=== PATIENT | female | born 1980 | race American Indian/Alaskan Native ===

== ENCOUNTER 2018-03-12 14:49 | Inpatient (IN) | payer OTHER ==
[2018-03-12] MEDS ORDERED: PROVENTIL IH ONE ×2 (15:06→15:10)
[2018-03-12] MEDS ORDERED: ATROVENT IH ONE ×2 (15:06→15:10)
[2018-03-12] MEDS ORDERED: MAGNESIUM SULFATE 2GM/50ML 2 GM/50 ML BAG IV ONE (15:11)
[2018-03-12 15:43] LABS: Basophils # (Auto) 0.1 K/mm3 (0.0-0.1); Basophils % (Auto) 0.9 % (0.0-1.8); Eosinophils # (Auto) 0.4 K/mm3 (0.0-0.4); Eosinophils % (Auto) 6.3 % (0.0-4.3); Hematocrit 40.6 % (30.3-42.9); Hemoglobin 13.5 gm/dl (10.1-14.3); Lymphocytes # (Auto) 1.6 K/mm3 (1.2-5.4); Lymphocytes % (Auto) 27.3 % (13.4-35.0); Mean Corpuscular HGB Conc 33 % (30-34); Mean Corpuscular Hemoglobin 28 pg (28-32); Mean Corpuscular Volume 83 fl (79-97); Monocytes # (Auto) 0.5 K/mm3 (0.0-0.8); Monocytes % (Auto) 9.1 % (0.0-7.3); Red Blood Count 4.91 M/mm3 (3.65-5.03); Red Cell Distribution Width 13.5 % (13.2-15.2)
[2018-03-12] MEDS ORDERED: TYLENOL ONE (15:53)
[2018-03-12] MEDS ORDERED: TYLENOL PO ONE (15:53)
[2018-03-12 16:19] LABS: Blood Urea Nitrogen TNR mg/dL (7-17)
[2018-03-12 16:20] LABS: BUN/Creatinine Ratio TNR; Calcium TNR mg/dL (8.4-10.2); Hemolysis Index TNR
--- NOTE | 2018-03-12 17:02 | XRay Report ---
FINAL REPORT EXAM: XR CHEST 1V AP HISTORY: chest pain COMPARISON: None. TECHNIQUE: Two frontal views of the chest. FINDINGS: The cardiomediastinal silhouette is normal in appearance. The lungs are clear without focal consolidation. There is no pleural effusion or pneumothorax. There is no acute soft tissue or osseous abnormality. IMPRESSION: No acute cardiopulmonary disease.
[2018-03-12 17:05] LABS: Platelet Count 314 K/mm3 (140-440)
[2018-03-12 17:21] LABS: BUN/Creatinine Ratio 11; Blood Urea Nitrogen 8 mg/dL (7-17); Hemolysis Index 5
[2018-03-12] MEDS ORDERED: BABY ASPIRIN PO ONE (17:36)
--- NOTE | 2018-03-12 17:36 | Emergency Department Report ---
HPI - General Chief Complaint: Adult Asthma Time Seen by Provider: 03/12/18 15:03 - HPI HPI: The patient is a 37-year-old female with a history of asthma, presents for evaluation of dyspnea. The patient reports constant and severe dyspnea for the past one day, exacerbated with exertion and improved with breathing treatments. She also reports a mild nonproductive cough. She shares that she has been intubated in the past secondary to her asthma. The patient denies fever, trauma to the chest, chest pain, syncope, hemoptysis, unilateral leg swelling, oral contraceptive use, recent immobilization, history of DVT or PE, hx of recent cancer. ED Past Medical Hx - Past Medical History Hx Kidney Stones: Yes Hx Psychiatric Treatment: Yes ( depression) Hx Asthma: Yes Hx COPD: Yes Additional medical history: COPD; Ovarian and Breast Cancer - Surgical History Hx Cholecystectomy: Yes Hx Breast Surgery: Yes - Social History Smoking Status: Unknown if ever smoked Substance Use Type: None - Medications Home Medications: Home Medications Medication Instructions Recorded Confirmed Last Taken Type Duloxetine HCl [DULoxetine] 60 mg PO DAILY 02/13/17 12/27/17 Unknown History Escitalopram [Lexapro] 20 mg PO DAILY 02/13/17 12/27/17 1 Day Ago History ~02/12/17 carBAMazepine [TEGretol] 200 mg PO QHS 02/13/17 12/27/17 Unknown History risperiDONE [RisperDAL] 1 mg PO QHS 02/13/17 12/27/17 02/12/17 History Fluticasone/Salmeterol [Advair 200 mg IH BID #1 blst.w.dev 02/16/17 12/27/17 Unknown Rx 250-50 Diskus] ALBUTEROL Inhaler [Proair] 2 puff IH QID PRN 30 Days 12/30/17 Unknown Rx inhalation ALBUTEROL NEB's [Proventil 0.083% 2.5 mg IH Q4HRT PRN #30 nebu 12/30/17 Unknown Rx NEBS] Famotidine [Pepcid] 20 mg PO BID #60 tablet 12/30/17 Unknown Rx Fluticasone/Salmeterol [Advair 1 puff IH BID 30 Days blst.w.dev 12/30/17 Unknown Rx Diskus 500-50 mcg] Montelukast [Singulair] 10 mg PO QPM #30 tablet 12/30/17 Unknown Rx predniSONE [Deltasone] 50 mg PO QDAY #5 tab 12/30/17 Unknown Rx ED Review of Systems ROS: Stated complaint: ASTHMA Other details as noted in HPI Constitutional: denies: fever ENT: denies: throat or neck pain Respiratory: reports cough, shortness of breath Cardiovascular: denies: chest pain Endocrine: denies unexplained weight loss or gain Gastrointestinal: denies: abdominal pain, nausea Genitourinary: denies: dysuria Musculoskeletal: denies: leg swelling Skin: denies: rash Neurological: denies: headache Hematological/Lymphatic: denies: easy bleeding or easy bruising Psych: denies sadness or hopelessness Physical Exam - Physical Exam Vital Signs: Vital Signs 03/12/18 03/12/18 03/12/18 14:51 15:08 15:15 Temperature 97 F L Pulse Rate 116 H 91 H Respiratory 24 24 16 Rate Blood Pressure 157/101 Blood Pressure 139/96 [Right] O2 Sat by Pulse 95 100 100 Oximetry 03/12/18 03/12/18 15:55 16:50 Temperature Pulse Rate 97 H 95 H Respiratory 14 13 Rate Blood Pressure Blood Pressure 121/80 [Right] O2 Sat by Pulse 98 97 Oximetry Physical Exam: General: well-nourished, well-developed, no acute distress Head: Normocephalic, atraumatic Eyes: normal sclera ENT: Mucous membranes are pink and moist Neck: trachea midline, neck supple, No neck stiffness, no cervical adenopathy Respiratory: Diminished breath sounds and wheezing present throughout lung chaudhary bilaterally, costal retractions present, patient in mild respiratory distress Cardio: S1 and S2 present, no murmurs, rubs, gallops, capillary refill is brisk Abdomen: Normoactive bowel sounds, soft abdomen, no rigidity, no guarding or rebound tenderness Chest WALL/Back: No tenderness to palpation of the chest wall, no CVA tenderness with percussion Musc: No pitting edema Skin: No rash Neuro: no facial drooping, normal speech Psych: Normal affect ED Course Vital Signs 03/12/18 03/12/18 03/12/18 14:51 15:08 15:15 Temperature 97 F L Pulse Rate 116 H 91 H Respiratory 24 24 16 Rate Blood Pressure 157/101 Blood Pressure 139/96 [Right] O2 Sat by Pulse 95 100 100 Oximetry 03/12/18 03/12/18 15:55 16:50 Temperature Pulse Rate 97 H 95 H Respiratory 14 13 Rate Blood Pressure Blood Pressure 121/80 [Right] O2 Sat by Pulse 98 97 Oximetry ED Medical Decision Making - Lab Data Result diagrams: 03/12/18 15:15 03/12/18 16:51 - Medical Decision Making The patient was seen and examined by myself. The patient is placed on a cardiac surgeon and continuous pulse ox. On initial evaluation, the patient was found to be in no distress. Evaluation orders were placed. The patient is given a breathing treatment and steroids for txt of COPD. Chest x-ray negative for focal consolidation, pleural effusions, pulmonary congestion, pneumothorax, or other acute cardio pulmonary disease process. Lab results are grossly not concerning. The patient was reevaluated and reported that her dyspnea persisted. On reexamination the patient remains with significant wheezing and diminished breath sounds despite multiple breathing treatments. The on-call hospitalist service was contacted. They agreed to admit the patient for further treatment and close monitoring. The ED admit order was placed. The patient was admitted in guarded condition. Critical care attestation.: If time is entered above; I have spent that time in minutes in the direct care of this critically ill patient, excluding procedure time. ED Disposition Clinical Impression: Asthma with status asthmaticus in adult Qualifiers: Asthma severity: severe Asthma persistence: persistent Qualified Code(s): J45.52 - Severe persistent asthma with status asthmaticus Disposition: OP ADMIT IP TO THIS HOSP Is pt being admited?: Yes Does the pt Need Aspirin: Yes Condition: Serious Referrals: PRIMARY CARE, [Primary Care Provider] - 3-5 Days Time of Disposition: 17:35
[2018-03-12] MEDS ORDERED: BENADRYL IV ONE (17:37)
--- NOTE | 2018-03-12 17:40 | History and Physical Report ---
History of Present Illness Chief complaint: I cant breathe History of present illness: 37 YO Female with Asthma, COPD,Depression, Breast Cancer, Cervical Cancer, Depression presents to ED for evaluation. Pt states that she has experienced shortness of breath over the past 1 week with worsening symptoms over the past 1 day. Pt was seen at Urgent Care and given medications without improvement. Pt acknowledges nonproductive cough, dypsnea with exertion, decreased exercise tolerance. Pt denies fever, chills, trauma to the chest, chest pain, palpitations, syncope, hemoptysis, unilateral leg swelling, oral contraceptive use, prolonged travel/immobilization, individual/family history of DVT or PE,, recent ill contacts, unintentional weight loss, or night sweats. Pt seen and evaluated in ED and found to have Status asthmaticus complicated by respiratory failure. Pt admitted to telemetry. Past History Past Medical History: cancer, other (Asthma, Cancer, Depression) Past Surgical History: cholecystectomy, , Other (breast surgery) Social history: . denies: smoking, alcohol abuse, prescription drug abuse Family history: hypertension Medications and Allergies Allergies Allergy/AdvReac Type Severity Reaction Status Date / Time latex Allergy Unknown Verified 02/26/16 19:30 levofloxacin [From Levaquin] Allergy Shortness Verified 02/22/16 11:50 of Breath ondansetron Allergy Anaphylaxis Verified 02/26/16 19:30 Sulfa (Sulfonamide Allergy Shortness Verified 02/22/16 11:50 Antibiotics) of Breath Home Medications Medication Instructions Recorded Confirmed Last Taken Type Duloxetine HCl [DULoxetine] 60 mg PO DAILY 02/13/17 12/27/17 Unknown History Escitalopram [Lexapro] 20 mg PO DAILY 02/13/17 12/27/17 1 Day Ago History ~02/12/17 carBAMazepine [TEGretol] 200 mg PO QHS 02/13/17 12/27/17 Unknown History risperiDONE [RisperDAL] 1 mg PO QHS 02/13/17 12/27/17 02/12/17 History Fluticasone/Salmeterol [Advair 200 mg IH BID #1 blst.w.dev 02/16/17 12/27/17 Unknown Rx 250-50 Diskus] ALBUTEROL Inhaler [Proair] 2 puff IH QID PRN 30 Days 12/30/17 Unknown Rx inhalation ALBUTEROL NEB's [Proventil 0.083% 2.5 mg IH Q4HRT PRN #30 nebu 12/30/17 Unknown Rx NEBS] Famotidine [Pepcid] 20 mg PO BID #60 tablet 12/30/17 Unknown Rx Fluticasone/Salmeterol [Advair 1 puff IH BID 30 Days blst.w.dev 12/30/17 Unknown Rx Diskus 500-50 mcg] Montelukast [Singulair] 10 mg PO QPM #30 tablet 12/30/17 Unknown Rx predniSONE [Deltasone] 50 mg PO QDAY #5 tab 12/30/17 Unknown Rx Review of Systems Constitutional: no weight loss, no weight gain, no fever, no chills Ears, nose, mouth and throat: no ear pain, no ear discharge, no tinnitis, no decreased hearing, no nose pain, no nasal congestion, no nasal discharge Breasts: no change in shape, no swelling, no mass Cardiovascular: no chest pain, no orthopnea, no rapid/irregular heart beat, no edema Respiratory: cough, shortness of breath, dyspnea on exertion, wheezing, no pain , no pain on inspiration, no home oxygen Gastrointestinal: no nausea, no vomiting, no diarrhea, no constipation Genitourinary Female: no pelvic pain, no flank pain, no menorrhagia, no dysuria , no urinary frequency, no urgency, no stress incontinence, no post void dribbling Rectal: no pain, no incontinence, no bleeding Musculoskeletal: no neck stiffness, no neck pain, no shooting arm pain, no arm numbness/tingling, no low back pain, no leg numbness/tingling Integumentary: no rash, no pruritis, no redness, no sores, no wounds, no jaundice Neurological: no head injury, no transient paralysis, no paralysis, no weakness , no parathesias, no numbness, no tingling, no seizures, no syncope Psychiatric: no anxiety, no memory loss, no change in sleep habits, no sleep disturbances, no insomnia, no hypersomnia, no change in appetite, no change in libido Endocrine: no cold intolerance, no heat intolerance, no polyphagia, no excessive thirst, no polydipsia, no polyuria, no nocturia, no excessive sweating Hematologic/Lymphatic: no easy bruising, no easy bleeding, no lymphadenopathy Allergic/Immunologic: no urticaria, no allergic rhinitis, no wheezing, no persistent infections, no anaphylaxis, no angioedema Exam - Constitutional Vitals: Temp Pulse Resp BP Pulse Ox 97 F L 95 H 13 121/80 97 03/12/18 14:51 03/12/18 16:50 03/12/18 16:50 03/12/18 16:50 03/12/18 16:50 General appearance: Present: mild distress - EENT Eyes: Present: PERRL ENT: hearing intact, clear oral mucosa - Neck Neck: Present: supple, normal ROM - Respiratory Respiratory effort: labored Respiratory: bilateral: diminished, wheezing - Cardiovascular Heart Sounds: Present: S1 & S2. Absent: rub, click - Extremities Extremities: pulses symmetrical, No edema Peripheral Pulses: within normal limits - Abdominal General gastrointestinal: Present: soft, non-tender, non-distended, normal bowel sounds Female genitourinary: Present: normal - Integumentary Integumentary: Present: clear, warm, dry - Musculoskeletal Musculoskeletal: gait normal, strength equal bilaterally - Psychiatric Psychiatric: appropriate mood/affect, intact judgment & insight - Neurologic Neurologic: CNII-XII intact, moves all extremities Results - Labs CBC & Chem 7: 03/12/18 15:15 03/12/18 16:51 Labs: Abnormal lab results 03/12/18 03/12/18 Range/Units 15:15 16:51 [place] % (Auto) 9.1 H (0.0-7.3) % Eos % (Auto) 6.3 H (0.0-4.3) % Potassium 3.2 L (3.6-5.0) mmol/L Carbon Dioxide 19 L (22-30) mmol/L Glucose 109 H (65-100) mg/dL Assessment and Plan - Patient Problems (1) Respiratory failure Current Visit: Yes Status: Acute Qualifiers: Chronicity: acute Respiratory failure complication: hypoxia Qualified Code(s): J96.01 - Acute respiratory failure with hypoxia Plan to address problem: Supplemental oxygen, nebulizer therapy, IV steroids, NIPPV as clinically indicated, ABG, Chest X ray, pulse oximetry (2) Asthma with status asthmaticus in adult Current Visit: Yes Status: Acute Qualifiers: Asthma severity: severe Asthma persistence: persistent Qualified Code(s) : J45.52 - Severe persistent asthma with status asthmaticus Plan to address problem: IV steroids, IV antibiotics, supplemental oxygen, nebulizer therapy, NIPPV as clinically indicated ABG, magnesium sulfate (3) COPD exacerbation Current Visit: Yes Status: Acute Plan to address problem: supplemental oxygen, IV steroid therapy, Chest X ray, nebulizer therapy, NIPPV as clinically indicated, IV antibiotics. (4) DVT prophylaxis Current Visit: No Status: Acute Plan to address problem: SCD to BLE while in bed,
[2018-03-12] MEDS ORDERED: MORPHINE IV ONE (17:59)
[2018-03-12] MEDS ORDERED: TYLENOL PO PRN (18:04)
[2018-03-12] MEDS ORDERED: ZOFRAN IV PRN (18:04)
[2018-03-12] MEDS ORDERED: SODIUM CHLORIDE FLUSH SYRINGE 10 ML IV PRN ×2 (18:04→18:08)
[2018-03-12] MEDS ORDERED: MORPHINE ONE (18:05)
[2018-03-12] MEDS ORDERED: PROVENTIL IH PRN (18:06)
[2018-03-12] MEDS ORDERED: D50W (25GM) Syringe IV PRN (18:09)
[2018-03-12] MEDS ORDERED: DILAUDID IM PRN (19:09)
--- NOTE | 2018-03-12 19:58 | Cat Scan Report ---
FINAL REPORT PROCEDURE: CT ANGIO CHEST TECHNIQUE: Computerized axial tomographic angiography of the chest and pulmonary arteries was performed after the IV injection of iodinated nonionic contrast. The image data was postprocessed using maximum intensity projection (MIP) and 2-dimensional multiplanar reformatted (MPR) techniques. The examination is specifically tailored to the evaluation of the pulmonary arteries per clinical request. HISTORY: Short of breath 786.09, chest pain 786.50, dypsnea COMPARISON: No prior studies are available for comparison. FINDINGS: Heart and pericardium: Normal. Thoracic aorta: Normal. Pulmonary vasculature: Limited evaluation of distal branches due to suboptimal contrast enhancement. No emboli are seen within proximal to mid branches. Lymph nodes: No enlarged thoracic lymph nodes. Lungs: Normal. Pleural space: No effusion, thickening, or pneumothorax. Musculoskeletal structures: No significant abnormality. Upper abdominal structures: No significant abnormality. IMPRESSION: Limited evaluation of distal pulmonary arterial branches. Otherwise no emboli are seen.
[2018-03-12] MEDS: BROVANA NEBU IH SCH (21:02)
[2018-03-12] MEDS: PULMICORT IH SCH (21:03)
[2018-03-12] MEDS ORDERED: NON-FORMULARY (Fluticasone/Salmeterol [Advair Diskus 500-50 Mcg] 1 PUFF) IH SCH (22:00)
[2018-03-12] MEDS: PEPCID PO SCH (22:29)
[2018-03-12] MEDS: RisperDAL PO SCH (22:29)
[2018-03-12] MEDS: SODIUM CHLORIDE FLUSH SYRINGE 10 ML IV SCH (22:30)
[2018-03-12] MEDS: DILAUDID IV PRN (22:58)
[2018-03-13] MEDS: HumaLOG SUB-Q SCH ×5 (08:14→18:12)
[2018-03-13] MEDS: DILAUDID IV PRN (08:58)
[2018-03-13] MEDS: BROVANA NEBU IH SCH ×2 (10:00→19:55)
[2018-03-13] MEDS: PULMICORT IH SCH ×2 (10:00→19:55)
[2018-03-13] MEDS ORDERED: ZITHROMAX 500 MG in NACL 0.9% 250ML 250 ML IV SCH (10:00)
[2018-03-13] MEDS ORDERED: NON-FORMULARY (Duloxetine Hcl [Duloxetine] 60 MG) PO SCH (10:00)
[2018-03-13] MEDS: DUONEB *Not for PRN Use IH SCH ×3 (10:18→21:40)
[2018-03-13] MEDS: PEPCID PO SCH ×2 (10:51→21:48)
[2018-03-13] MEDS: LEXAPRO PO SCH (10:51)
[2018-03-13] MEDS: CYMBALTA PO SCH (10:51)
[2018-03-13] MEDS: SODIUM CHLORIDE FLUSH SYRINGE 10 ML IV SCH ×2 (10:53→21:49)
[2018-03-13] MEDS: HumuLIN R SUB-Q SCH ×4 (13:22→22:45)
--- NOTE | 2018-03-13 13:24 | Progress Note ---
Assessment and Plan Acute respiratory failure due to acute asthma exacerbation - We'll monitor patient to telemetry - Will provide scheduled nebulizer breathing treatment and as needed - Place on empiric steroid and antibiotic - will get sputum culture, chest x-ray was unremarkable - Provide supplemental oxygen to keep oxygen saturation above 92% - Consider to consult pulmonary if no improvement in next 24 hours - We'll place on sliding scale of insulin as patient will be on empiric steroid - We will resume home medications, monitor BP - Provide DVT prophylaxis with Lovenox. Acute asthma exacerbation -Continue nebs, steroids and antibiotics History of chronic pain - We'll continue Percocet as needed History of depression, continue Cymbalta DVT prophylaxis, Lovenox Brief history: 37-year-old -[place] female with history of asthma presented to the hospital with 1 week history of progressively worsening shortness of breath. Radiological test: Chest x-ray: No acute cardiopulmonary process CTA chest: No PE Hospitalist Physical exam: GENERAL: well-developed and well-nourished lying on bed appeared to be in no discomfort. HEENT: Normocephalic. Atraumatic. No conjunctival congestion or icterus. Patient has moist mucous membranes. NECK: Supple. Trachea midline. CHEST/LUNGS: Diffuse wheezing auscultated bilaterally, breathing nonlabored. No crackles or rhonchi. HEART/CARDIOVASCULAR: Regular in rate and rhythm. S1 and S2 positive. ABDOMEN: Abdomen is soft, nontender. Patient has normal bowel sounds. SKIN: There is no rash. Warm and dry. NEURO: No focal motor deficit. Follows command. MUSCULOSKELETAL: No joint effusion or tenderness. EXTRIMITY: No edema, no cyanosis or clubbing. PSYCH: Cooperative. Subjective Date of service: 03/13/18 Interval history: Patient seen and examined. Medical records and medication list reviewed. No acute event overnight noted by the RN. Patient c/o difficulty breathing with minimal exertion. Patient is tolerating diet. Discussed plan of care at bedside with patient. Objective - Constitutional Vitals: Vital Signs - 12hr 03/13/18 03/13/18 03/13/18 03:12 04:59 08:27 Temperature 97.9 F Pulse Rate 96 H 80 89 Pulse Rate [ Bilateral Throughout] Pulse Rate [ From Monitor] Respiratory 20 18 Rate Respiratory Rate [Bilateral Throughout] Blood Pressure 125/83 125/84 O2 Sat by Pulse 100 98 Oximetry 03/13/18 03/13/18 03/13/18 10:00 10:15 12:15 Temperature 98.8 F Pulse Rate 100 H Pulse Rate [ 98 H 101 H Bilateral Throughout] Pulse Rate [ 89 From Monitor] Respiratory 18 18 Rate Respiratory 20 20 Rate [Bilateral Throughout] Blood Pressure 115/79 O2 Sat by Pulse 98 98 Oximetry 03/13/18 12:23 Temperature 97.3 F L Pulse Rate 107 H Pulse Rate [ Bilateral Throughout] Pulse Rate [ From Monitor] Respiratory 18 Rate Respiratory Rate [Bilateral Throughout] Blood Pressure 118/72 O2 Sat by Pulse 94 Oximetry - Labs CBC & Chem 7: 03/12/18 15:15 03/12/18 16:51 Labs: Abnormal lab results 03/12/18 03/12/18 03/12/18 Range/Units 15:15 16:51 18:20 [place] % (Auto) 9.1 H (0.0-7.3) % Eos % (Auto) 6.3 H (0.0-4.3) % POC ABG pCO2 30.3 L (35-45) Potassium 3.2 L (3.6-5.0) mmol/L Carbon Dioxide 19 L (22-30) mmol/L Glucose 109 H (65-100) mg/dL POC Glucose (70-105) 03/12/18 03/13/18 03/13/18 Range/Units 21:53 06:39 12:21 [place] % (Auto) (0.0-7.3) % Eos % (Auto) (0.0-4.3) % POC ABG pCO2 (35-45) Potassium (3.6-5.0) mmol/L Carbon Dioxide (22-30) mmol/L Glucose (65-100) mg/dL POC Glucose 188 H 121 H 114 H (70-105)
[2018-03-13] MEDS: PERCOCET 5/325 PO PRN ×2 (14:28→18:46)
[2018-03-13] MEDS: KCL 10MEQ/100ML 10 MEQ/100 ML BAG IV SCH ×3 (14:56→18:45)
[2018-03-13] MEDS ORDERED: SINGULAIR PO SCH (18:00)
[2018-03-13] MEDS: RisperDAL PO SCH (21:48)
[2018-03-13] MEDS ORDERED: K-DUR PO ONE (22:02)
[2018-03-14] MEDS: DUONEB *Not for PRN Use IH SCH ×3 (02:08→13:45)
[2018-03-14 05:21] VITALS: BP 130/78
[2018-03-14 07:22] LABS: BUN/Creatinine Ratio 14; Blood Urea Nitrogen 10 mg/dL (7-17); Calcium 9.2 mg/dL (8.4-10.2); Hemolysis Index 3
[2018-03-14] MEDS: HumuLIN R SUB-Q SCH ×2 (08:18→13:52)
[2018-03-14] MEDS: BROVANA NEBU IH SCH (09:05)
[2018-03-14] MEDS: PULMICORT IH SCH (09:06)
[2018-03-14] MEDS: PERCOCET 5/325 PO PRN ×2 (09:27→14:15)
[2018-03-14] MEDS: CYMBALTA PO SCH (09:29)
[2018-03-14] MEDS: LEXAPRO PO SCH (09:29)
[2018-03-14] MEDS: SODIUM CHLORIDE FLUSH SYRINGE 10 ML IV SCH (09:29)
[2018-03-14] MEDS: PEPCID PO SCH (09:29)
[2018-03-14] MEDS ORDERED: ZITHROMAX PO SCH (10:00)
--- NOTE | 2018-03-14 11:15 | Discharge Summary ---
Providers - Providers Date of Admission: 03/12/18 18:04 Attending physician: TIMBO CHOUDHARY MD 03/12/18 Consult to Cardiac Rehabilitation [CONS] Routine Reason For Exam: Phase I Primary care physician: NURSING HOME ASSISTANT ADMINISTRATOR Hospitalization Reason for admission: Acute respiratory failure, Asthma exacerbation Condition: Serious Disposition: DC-01 TO HOME OR SELFCARE Time spent for discharge: 32 minutes - Discharge Diagnoses (1) Asthma with status asthmaticus in adult Status: Acute Qualifiers: Asthma severity: severe Asthma persistence: persistent Qualified Code(s) : J45.52 - Severe persistent asthma with status asthmaticus (2) COPD exacerbation Status: Acute (3) Respiratory failure Status: Acute Qualifiers: Chronicity: acute Respiratory failure complication: hypoxia Qualified Code(s): J96.01 - Acute respiratory failure with hypoxia (4) Hypokalemia Status: Acute Core Measure Documentation - Palliative Care Palliative Care/ Comfort Measures: Not Applicable - Core Measures Any of the following diagnoses?: none Exam - Constitutional Vitals: Temp Pulse Resp BP Pulse Ox 98.5 F 87 24 130/78 99 03/14/18 04:33 03/14/18 09:20 03/14/18 09:20 03/14/18 04:33 03/14/18 09:21 Plan Activity: no restrictions Weight Bearing Status: Full Weight Bearing Follow up with: PRIMARY CAREMD [Primary Care Provider] - 7 Days Prescriptions: Azithromycin [Zithromax TAB] 250 mg PO QDAY #5 tablet Prednisone [predniSONE 10 mg (6-Day Pack, 21 Tabs)] 10 mg PO .TAPER #1 tab.ds.pk
== END 2018-03-14 17:18 | disposition home or self-care (01) | DRG 189 ==
LOC: ED 14:49 → 4A 18:04
PROVIDERS: ADMIT Internal Medicine; ATTEND Internal Medicine
PROC: 4A033R1 Measurement of Arterial Saturation, Peripheral, Percutaneous Approach (ICD-10-PCS; principal; 2018-03-12)
DX: J96.00 Acute respiratory failure, unspecified whether with hypoxia or hypercapnia (principal); J44.1 Chronic obstructive pulmonary disease with (acute) exacerbation; J45.902 Unspecified asthma with status asthmaticus; F32.9 Major depressive disorder, single episode, unspecified; E87.6 Hypokalemia; Z87.442 Personal history of urinary calculi; Z85.43 Personal history of malignant neoplasm of ovary; Z85.3 Personal history of malignant neoplasm of breast; Z90.49 Acquired absence of other specified parts of digestive tract; Z79.899 Other long term (current) drug therapy; Z79.51 Long term (current) use of inhaled steroids; Z82.49 Family history of ischemic heart disease and other diseases of the circulatory system
CPT/HCPCS: 36415; 71045; 71275; 80048; 82803; 82962; 83880; 84484; 84703; 85025; 93005; 93010; 94640; J0456; J1170; J1815; J2270; J2920; J2930; J3475; J3480; J7050; Q9967

== ENCOUNTER 2018-07-15 17:54 | Emergency (ER) | payer OTHER ==
[2018-07-15 18:20] VITALS: BP 141/99
[2018-07-15] MEDS ORDERED: DUONEB *Not for PRN Use IH ONE (18:21)
== END 2018-07-15 20:35 | disposition left against medical advice (07) ==
LOC: ED 17:54
DX: R06.02 Shortness of breath (principal); J44.9 Chronic obstructive pulmonary disease, unspecified; F32.9 Major depressive disorder, single episode, unspecified; Z90.49 Acquired absence of other specified parts of digestive tract; Z87.442 Personal history of urinary calculi; Z87.891 Personal history of nicotine dependence; Z88.2 Allergy status to sulfonamides; Z91.040 Latex allergy status; Z88.6 Allergy status to analgesic agent; Z53.21 Procedure and treatment not carried out due to patient leaving prior to being seen by health care provider
CPT/HCPCS: 94640

== ENCOUNTER 2018-08-08 10:12 | Inpatient (IN) | payer OTHER ==
[2018-08-08] MEDS ORDERED: PROVENTIL IH ONE ×2 (10:57→11:30)
[2018-08-08] MEDS ORDERED: ATROVENT IH ONE ×2 (10:57→11:27)
[2018-08-08 11:21] LABS: Basophils # (Auto) 0.1 K/mm3 (0.0-0.1); Basophils % (Auto) 0.6 % (0.0-1.8); Eosinophils # (Auto) 0.3 K/mm3 (0.0-0.4); Eosinophils % (Auto) 3.3 % (0.0-4.3); Hematocrit 35.4 % (30.3-42.9); Hemoglobin 11.5 gm/dl (10.1-14.3); Lymphocytes # (Auto) 1.1 K/mm3 (1.2-5.4); Lymphocytes % (Auto) 11.7 % (13.4-35.0); Mean Corpuscular HGB Conc 33 % (30-34); Mean Corpuscular Hemoglobin 27 pg (28-32); Mean Corpuscular Volume 82 fl (79-97); Monocytes # (Auto) 0.5 K/mm3 (0.0-0.8); Monocytes % (Auto) 5.3 % (0.0-7.3); Platelet Count 295 K/mm3 (140-440); Red Blood Count 4.31 M/mm3 (3.65-5.03); Red Cell Distribution Width 14.8 % (13.2-15.2)
--- NOTE | 2018-08-08 11:21 | Emergency Department Report ---
ED General Adult HPI - General Chief complaint: Dyspnea/Respdistress Stated complaint: RAVI Time Seen by Provider: 08/08/18 10:45 Source: EMS Mode of arrival: Stretcher Limitations: No Limitations - History of Present Illness Initial comments: A 37-year-old female with a history of asthma presents with a complaint of shortness of breath. Patient states that over the past 2 days she has been taking her for inhalers as well as a nebulized treatment every 4 hours with minimal relief. Patient states her symptoms of shortness of breath worsened today. Patient states that she was seen at [facility] yesterday. Patient states she's had continued wheezing with a cough. EMS gave patient magnesium Solu-Medrol and albuterol 5 mg. Patient has had no fever. Patient states that she also has had noted blood in her stool for the past 3 days. She denies any melena. Patient also complains of intermittent chest pain for the past 3 days as well. - Related Data Home Medications Medication Instructions Recorded Confirmed Last Taken Duloxetine HCl [DULoxetine] 60 mg PO DAILY 02/13/17 08/08/18 2 Days Ago ~03/11/18 Escitalopram [Lexapro] 20 mg PO DAILY 02/13/17 08/08/18 2 Days Ago ~03/11/18 carBAMazepine [TEGretol] 200 mg PO QHS 02/13/17 08/08/18 2 Days Ago ~03/11/18 risperiDONE [RisperDAL] 1 mg PO QHS 02/13/17 08/08/18 2 Days Ago ~03/11/18 ALBUTEROL Inhaler (OR & NICU) 2 puff IH QID PRN 08/08/18 08/08/18 Unknown [Proair] Amoxicillin/Potassium Clav 1 each PO BID 08/08/18 08/08/18 Unknown [Augmentin 875-125 Tablet] Benzonatate 200 mg PO PRN 08/08/18 08/08/18 Unknown Previous Rx's Medication Instructions Recorded Last Taken Type ALBUTEROL NEB's [Proventil 0.083% 2.5 mg IH Q4HRT PRN #30 nebu 12/30/17 2 Days Ago Rx NEBS] ~03/11/18 Fluticasone/Salmeterol [Advair 1 puff IH BID 30 Days blst.w.dev 12/30/17 2 Days Ago Rx Diskus 500-50 mcg] ~03/11/18 Montelukast [Singulair] 10 mg PO QPM #30 tablet 12/30/17 2 Days Ago Rx ~03/11/18 Prednisone [predniSONE 10 mg 10 mg PO .TAPER #1 tab.ds.pk 03/14/18 Unknown Rx (6-Day Pack, 21 Tabs)] Allergies Allergy/AdvReac Type Severity Reaction Status Date / Time latex Allergy Unknown Verified 02/26/16 19:30 levofloxacin [From Levaquin] Allergy Shortness Verified 02/22/16 11:50 of Breath ondansetron Allergy Anaphylaxis Verified 02/26/16 19:30 Sulfa (Sulfonamide Allergy Shortness Verified 02/22/16 11:50 Antibiotics) of Breath ED Review of Systems ROS: Stated complaint: RAVI Other details as noted in HPI Constitutional: denies: chills, fever Eyes: denies: eye pain, eye discharge, vision change ENT: denies: ear pain, throat pain Respiratory: cough, SOB at rest, wheezing. denies: shortness of breath Cardiovascular: chest pain. denies: palpitations Endocrine: no symptoms reported Gastrointestinal: hematochezia. denies: abdominal pain, nausea, diarrhea Genitourinary: denies: urgency, dysuria, discharge Musculoskeletal: denies: back pain, joint swelling, arthralgia Skin: denies: rash, lesions Neurological: denies: headache, weakness, paresthesias Psychiatric: denies: anxiety, depression Hematological/Lymphatic: denies: easy bleeding, easy bruising ED Past Medical Hx - Past Medical History Hx Congestive Heart Failure: No Hx Diabetes: No Hx Kidney Stones: Yes Hx Psychiatric Treatment: Yes ( depression) Hx Asthma: Yes Hx COPD: Yes Additional medical history: COPD; Ovarian and Breast Cancer - Surgical History Hx Cholecystectomy: Yes Hx Breast Surgery: Yes - Social History Smoking Status: Former Smoker Substance Use Type: None - Medications Home Medications: Home Medications Medication Instructions Recorded Confirmed Last Taken Type Duloxetine HCl [DULoxetine] 60 mg PO DAILY 02/13/17 08/08/18 2 Days Ago History ~03/11/18 Escitalopram [Lexapro] 20 mg PO DAILY 02/13/17 08/08/18 2 Days Ago History ~03/11/18 carBAMazepine [TEGretol] 200 mg PO QHS 02/13/17 08/08/18 2 Days Ago History ~03/11/18 risperiDONE [RisperDAL] 1 mg PO QHS 02/13/17 08/08/18 2 Days Ago History ~03/11/18 ALBUTEROL NEB's [Proventil 0.083% 2.5 mg IH Q4HRT PRN #30 nebu 12/30/17 2 Days Ago Rx NEBS] ~03/11/18 Fluticasone/Salmeterol [Advair 1 puff IH BID 30 Days blst.w.dev 12/30/17 2 Days Ago Rx Diskus 500-50 mcg] ~03/11/18 Montelukast [Singulair] 10 mg PO QPM #30 tablet 12/30/17 08/08/18 2 Days Ago Rx ~03/11/18 Prednisone [predniSONE 10 mg 10 mg PO .TAPER #1 tab.ds.pk 03/14/18 08/08/18 Unknown Rx (6-Day Pack, 21 Tabs)] ALBUTEROL Inhaler (OR & NICU) 2 puff IH QID PRN 08/08/18 08/08/18 Unknown History [Proair] Amoxicillin/Potassium Clav 1 each PO BID 08/08/18 08/08/18 Unknown History [Augmentin 875-125 Tablet] Benzonatate 200 mg PO PRN 08/08/18 08/08/18 Unknown History ED Physical Exam - General Limitations: No Limitations General appearance: alert, in distress (respiratory) - Head Head exam: Present: atraumatic, normocephalic - Eye Eye exam: Present: normal appearance - ENT ENT exam: Present: mucous membranes dry - Neck Neck exam: Present: normal inspection - Respiratory Respiratory exam: Present: respiratory distress (moderate respiratory), wheezes (diffuse wheezing present), decreased breath sounds - Cardiovascular Cardiovascular Exam: Present: normal rhythm, tachycardia. Absent: systolic murmur, diastolic murmur, rubs, gallop - GI/Abdominal GI/Abdominal exam: Present: soft, normal bowel sounds - Rectal Rectal exam: Present: heme (-) stool, other (brown stool) - Extremities Exam Extremities exam: Present: normal inspection - Back Exam Back exam: Present: normal inspection - Neurological Exam Neurological exam: Present: alert, oriented X3 - Psychiatric Psychiatric exam: Present: normal affect, normal mood - Skin Skin exam: Present: warm, dry, intact, normal color. Absent: rash ED Course Vital Signs 08/08/18 08/08/18 08/08/18 10:49 11:00 11:16 Temperature 98.1 F Pulse Rate 102 H 108 H Respiratory 26 H Rate Blood Pressure 138/83 127/92 O2 Sat by Pulse 99 100 98 Oximetry 08/08/18 08/08/18 08/08/18 11:30 11:53 12:00 Temperature Pulse Rate 97 H 97 H 110 H Respiratory 17 16 Rate Blood Pressure 133/78 137/85 O2 Sat by Pulse 98 99 Oximetry 08/08/18 08/08/18 08/08/18 13:00 14:00 15:00 Temperature Pulse Rate 113 H 119 H Respiratory 26 H 22 22 Rate Blood Pressure 130/84 130/84 131/82 O2 Sat by Pulse 99 99 97 Oximetry ED Medical Decision Making - Lab Data Result diagrams: 08/08/18 11:12 08/08/18 11:12 - EKG Data EKG shows normal: sinus rhythm Rate: normal - EKG Data When compared to previous EKG there are: no significant change Interpretation: no acute changes - Medical Decision Making Patient received albuterol 10 mg and Atrovent 1 mg while here in the emergency department. He shouldn't ambulate and her O2 sat was 98% on room air. Patient still continued to complain of feeling weak and having diffuse wheezing. The case is discussed with the hospitalist service who agreed to admit the patient for continued management and treatment. - Differential Diagnosis Asthma Exacerbation; Pneumonia; Dehydration; Anemia; Critical Care Time: Yes Critical care time in (mins) excluding proc time.: 38 Critical care attestation.: If time is entered above; I have spent that time in minutes in the direct care of this critically ill patient, excluding procedure time. Critical Care time includes time spent on frequent reassessments, direct bedside care, and physician consultation. ED Disposition Clinical Impression: Asthma with acute exacerbation Disposition: OP ADMIT IP TO THIS HOSP Is pt being admited?: Yes Condition: Stable Referrals: PRIMARY CARE, [Primary Care Provider] - 3-5 Days Time of Disposition: 15:08
--- NOTE | 2018-08-08 11:29 | XRay Report ---
AP CHEST: HISTORY: Dyspnea AP view of the chest demonstrates a normal mediastinal and cardiac contour with clear lungs and normal bony and soft tissue structures. IMPRESSION: Unremarkable AP chest. No change since 03/12/18.
[2018-08-08 11:45] LABS: Alanine Aminotransferase 13 units/L (7-56); Albumin 3.9 g/dL (3.9-5); BUN/Creatinine Ratio 16; Blood Urea Nitrogen 13 mg/dL (7-17); Calcium 9.1 mg/dL (8.4-10.2); Hemolysis Index 9
[2018-08-08] MEDS ORDERED: SODIUM CHLORIDE FLUSH SYRINGE 10 ML IV PRN (13:27)
[2018-08-08] MEDS ORDERED: ZOFRAN IV PRN (13:27)
[2018-08-08] MEDS ORDERED: PROVENTIL IH PRN (13:27)
[2018-08-08] MEDS ORDERED: TYLENOL PO PRN (13:27)
[2018-08-08] MEDS ORDERED: MAGNESIUM SULFATE 1 GM in WATER FOR INJ (PF) 23 ML IV ONE (13:33)
--- NOTE | 2018-08-08 13:36 | History and Physical Report ---
History of Present Illness Chief complaint: I cant breathe History of present illness: 37 YO Female with Asthma, COPD, Depression, Breast Cancer, Cervical Cancer, Depression presents to ED for evaluation. Pt states that she has experienced shortness of breath over the past 2days with worsening symptoms over the past 1 day. Pt was seen at another hospital and given medications without improvement. Pt acknowledges increased nonproductive cough, dypsnea with exertion, decreased exercise tolerance, shortness of breath, and worsening symptoms with nebulizer therapy every four hours. Pt denies fever, chills, trauma to the chest, chest pain, palpitations, syncope, hemoptysis, unilateral leg swelling, oral contraceptive use, prolonged travel/immobilization, individual/family history of DVT or PE,, recent ill contacts, unintentional weight loss, or night sweats. Pt seen and evaluated in ED and found to have Status Asthmaticus complicated by Acute Respiratory Failure. Pt admitted to medical floor. Past History Past Medical History: cancer, COPD, other (Asthma) Past Surgical History: Social history: . denies: smoking, alcohol abuse, prescription drug abuse Family history: hypertension Medications and Allergies Allergies Allergy/AdvReac Type Severity Reaction Status Date / Time latex Allergy Unknown Verified 02/26/16 19:30 levofloxacin [From Levaquin] Allergy Shortness Verified 02/22/16 11:50 of Breath ondansetron Allergy Anaphylaxis Verified 02/26/16 19:30 Sulfa (Sulfonamide Allergy Shortness Verified 02/22/16 11:50 Antibiotics) of Breath Home Medications Medication Instructions Recorded Confirmed Last Taken Type Duloxetine HCl [DULoxetine] 60 mg PO DAILY 02/13/17 03/13/18 2 Days Ago History ~03/11/18 Escitalopram [Lexapro] 20 mg PO DAILY 02/13/17 03/13/18 2 Days Ago History ~03/11/18 carBAMazepine [TEGretol] 200 mg PO QHS 02/13/17 03/13/18 2 Days Ago History ~03/11/18 risperiDONE [RisperDAL] 1 mg PO QHS 02/13/17 03/13/18 2 Days Ago History ~03/11/18 ALBUTEROL Inhaler (OR & NICU) 2 puff IH QID PRN 30 Days 12/30/17 03/13/18 2 Days Ago Rx [ProAir HFA Inhaler] inhalation ~03/11/18 ALBUTEROL NEB's [Proventil 0.083% 2.5 mg IH Q4HRT PRN #30 nebu 12/30/17 2 Days Ago Rx NEBS] ~03/11/18 Famotidine [Pepcid] 20 mg PO BID #60 tablet 12/30/17 03/13/18 2 Days Ago Rx ~03/11/18 Fluticasone/Salmeterol [Advair 1 puff IH BID 30 Days blst.w.dev 12/30/17 2 Days Ago Rx Diskus 500-50 mcg] ~03/11/18 Montelukast [Singulair] 10 mg PO QPM #30 tablet 12/30/17 03/13/18 2 Days Ago Rx ~03/11/18 Azithromycin [Zithromax TAB] 250 mg PO QDAY #5 tablet 03/14/18 Unknown Rx Prednisone [predniSONE 10 mg 10 mg PO .TAPER #1 tab.ds.pk 03/14/18 Unknown Rx (6-Day Pack, 21 Tabs)] Active Meds: Active Medications Acetaminophen (Tylenol) 650 mg PO Q4H PRN PRN Reason: Pain MILD(1-3)/Fever >100.5/COLES Albuterol (Proventil) 2.5 mg IH Q4HRT PRN PRN Reason: Shortness Of Breath Budesonide (Pulmicort) 0.5 mg IH Q12HRT WENDY Famotidine (Pepcid) 20 mg PO BID WENDY Hydrocodone Bit/Homatropine Methylb (Hydromet) 10 ml PO Q12H PRN PRN Reason: Cough Lorazepam (Ativan) 1 mg IV ONCE ONE Stop: 08/08/18 13:31 Lorazepam (Ativan) 1 mg IV Q6H PRN PRN Reason: Agitation Ondansetron HCl (Zofran) 4 mg IV Q8H PRN PRN Reason: Nausea And Vomiting Sodium Chloride (Sodium Chloride Flush Syringe 10 Ml) 10 ml IV BID WENDY Sodium Chloride (Sodium Chloride Flush Syringe 10 Ml) 10 ml IV PRN PRN PRN Reason: LINE FLUSH Review of Systems Constitutional: no weight loss, no weight gain, no fever, no chills Ears, nose, mouth and throat: no ear pain, no ear discharge, no tinnitis, no decreased hearing, no nose pain, no nasal congestion Breasts: no change in shape, no swelling, no mass Cardiovascular: no chest pain, no orthopnea, no palpitations, no rapid/ irregular heart beat, no edema Respiratory: cough, cough with sputum, shortness of breath, wheezing Gastrointestinal: no nausea, no vomiting, no diarrhea, no constipation, no change in bowel habits Genitourinary Female: no pelvic pain, no flank pain, no menorrhagia, no dysuria , no urinary frequency, no urgency Rectal: no pain, no incontinence Musculoskeletal: no neck stiffness, no neck pain, no shooting arm pain, no arm numbness/tingling, no low back pain, no shooting leg pain, no leg numbness/ tingling Integumentary: no rash, no pruritis, no redness, no sores, no wounds Neurological: no transient paralysis, no paralysis, no weakness, no parathesias , no numbness, no tingling, no seizures Psychiatric: no anxiety, no memory loss, no change in sleep habits, no sleep disturbances, no insomnia, no hypersomnia, no change in appetite Endocrine: no cold intolerance, no heat intolerance, no polyphagia, no excessive thirst, no polydipsia, no polyuria Hematologic/Lymphatic: no easy bruising, no easy bleeding, no lymphadenopathy, no lymphedema Allergic/Immunologic: no urticaria, no allergic rhinitis, no wheezing, no persistent infections, no anaphylaxis, no angioedema Exam - Constitutional Vitals: Temp Pulse Resp BP Pulse Ox 98.1 F 97 H 17 133/78 98 08/08/18 10:49 08/08/18 11:53 08/08/18 11:30 08/08/18 11:30 08/08/18 11:30 General appearance: Present: mild distress - EENT Eyes: Present: PERRL ENT: hearing intact, clear oral mucosa - Neck Neck: Present: supple, normal ROM - Respiratory Respiratory effort: labored Respiratory: bilateral: diminished, wheezing - Cardiovascular Rhythm: other (tachycardia) Heart Sounds: Present: S1 & S2. Absent: rub, click - Extremities Extremities: pulses symmetrical, No edema Peripheral Pulses: within normal limits - Integumentary Integumentary: Present: clear, warm, dry - Musculoskeletal Musculoskeletal: gait normal, strength equal bilaterally - Psychiatric Psychiatric: appropriate mood/affect, intact judgment & insight - Neurologic Neurologic: CNII-XII intact, moves all extremities Results - Labs CBC & Chem 7: 08/08/18 11:12 08/08/18 11:12 Labs: Abnormal lab results 08/08/18 08/08/18 Range/Units 11:12 11:12 MCH 27 L (28-32) pg Lymph % (Auto) 11.7 L (13.4-35.0) % Lymph # 1.1 L (1.2-5.4) K/mm3 Seg Neutrophils % 79.1 H (40.0-70.0) % Carbon Dioxide 20 L (22-30) mmol/L Glucose 102 H (65-100) mg/dL Assessment and Plan - Patient Problems (1) Respiratory failure with hypoxia Current Visit: Yes Status: Acute Qualifiers: Chronicity: acute on chronic Qualified Code(s): J96.21 - Acute and chronic respiratory failure with hypoxia Plan to address problem: Supplemental oxygen, nebulizer therapy, supportive care, chest x ray, CTA chest , NIPPV as clinically indicated, (2) Anxiety Current Visit: Yes Status: Acute Plan to address problem: Ativan prn, supportive care. (3) Asthma with status asthmaticus in adult Current Visit: No Status: Acute Qualifiers: Asthma severity: severe Asthma persistence: persistent Qualified Code(s) : J45.52 - Severe persistent asthma with status asthmaticus Plan to address problem: IV steroid therapy, supplemental oxygen, chest x ray, NIPPV as clinically indicated, Magnesium sulfate given by EMS en route to hospital (4) DVT prophylaxis Current Visit: No Status: Acute Plan to address problem: SCD to BLE while in bed.
[2018-08-08] MEDS ORDERED: ATIVAN IV ONE (13:37)
--- NOTE | 2018-08-08 14:52 | Cat Scan Report ---
CTA CHEST: HISTORY: Dyspnea. COMPARISON: 03/12/18. TECHNIQUE: Helical CT in 1.25mm intervals following IV contrast. Pulmonary embolus protocol. Sagittal and coronal reformatted images. Rotational MIP images. FINDINGS: Contrast bolus is satisfactory. No pulmonary embolus is identified. Thyroid gland: Normal. Tracheobronchial tree: Normal. Esophagus: Normal. Heart: Normal. Pericardium: Normal. Mediastinum: Normal. Lung [place]: normal. Pleural Spaces: Normal. Musculoskeletal: Normal. IMPRESSION: No evidence for pulmonary embolus. Unremarkable CT chest with contrast.
[2018-08-08] MEDS: ATIVAN IV PRN (18:39)
[2018-08-08] MEDS: BROVANA NEBU IH SCH (19:37)
[2018-08-08] MEDS: PROVENTIL IH SCH ×2 (19:37→23:53)
[2018-08-08] MEDS: PULMICORT IH SCH (19:37)
[2018-08-08] MEDS ORDERED: PROVENTIL IH SCH (20:00)
[2018-08-08] MEDS ORDERED: PULMICORT IH SCH (20:00)
[2018-08-08] MEDS ORDERED: NON-FORMULARY (Fluticasone/Salmeterol [Advair Diskus 500-50 Mcg] 1 PUFF) IH SCH (22:00)
[2018-08-08] MEDS: RisperDAL PO SCH (22:14)
[2018-08-08] MEDS: SODIUM CHLORIDE FLUSH SYRINGE 10 ML IV SCH (22:14)
[2018-08-08] MEDS: PEPCID PO SCH (22:14)
[2018-08-09] MEDS: PROVENTIL IH SCH ×6 (03:14→23:34)
[2018-08-09] MEDS: ATIVAN IV PRN ×3 (06:16→22:38)
[2018-08-09] MEDS: PULMICORT IH SCH ×2 (08:15→19:59)
[2018-08-09] MEDS: BROVANA NEBU IH SCH ×2 (08:16→20:00)
[2018-08-09] MEDS: CYMBALTA PO SCH (09:34)
[2018-08-09] MEDS: LEXAPRO PO SCH (09:35)
[2018-08-09] MEDS: PEPCID PO SCH ×2 (09:35→22:38)
[2018-08-09] MEDS: SODIUM CHLORIDE FLUSH SYRINGE 10 ML IV SCH ×3 (09:35→23:28)
[2018-08-09] MEDS ORDERED: NON-FORMULARY (Duloxetine Hcl [Duloxetine] 60 MG) PO SCH (10:00)
[2018-08-09] MEDS: HYDROMET PO PRN ×2 (17:17→17:27)
[2018-08-09] MEDS: SINGULAIR PO SCH (17:17)
--- NOTE | 2018-08-09 18:14 | Progress Note ---
Assessment and Plan Assessment and Plan - Patient Problems (1) Respiratory failure with hypoxia Current Visit: Yes Status: Acute Continue Solu-Medrol nebulizer treatments and antibiotics (2) Anxiety Current Visit: Yes Status: Acute Plan to address problem: Ativan prn, supportive care. (3) Asthma with status asthmaticus in adult Current Visit: No Status: Acute Qualifiers: Asthma severity: severe Asthma persistence: persistent Qualified Code(s) : J45.52 - Severe persistent asthma with status asthmaticus Plan to address problem: IV steroid therapy, supplemental oxygen, chest x ray, NIPPV as clinically indicated, Magnesium sulfate given by EMS en route to hospital (4) DVT prophylaxis Current Visit: No Status: Acute Plan to address problem: SCD to BLE while in bed. Subjective Date of service: 08/09/18 Principal diagnosis: status asthmaticus with respiratory failure Interval history: Symptomatically better Objective - Constitutional Vitals: Vital Signs - 12hr 08/09/18 08/09/18 08/09/18 06:55 08:15 08:29 Temperature 98.6 F Pulse Rate 106 H Pulse Rate [ 114 H Anterior Bilateral Throughout] Pulse Rate [ Anterior Left Upper Lobe] Pulse Rate [ Posterior Throughout] Pulse Rate [ Right From Monitor] Respiratory 18 Rate Respiratory 20 Rate [Anterior Bilateral Throughout] Respiratory Rate [Anterior Left Upper Lobe ] Respiratory Rate [Posterior Throughout] Blood Pressure Blood Pressure 97/70 [Left] O2 Sat by Pulse 100 97 Oximetry 08/09/18 08/09/18 08/09/18 08:34 10:00 12:38 Temperature 98.6 F Pulse Rate Pulse Rate [ Anterior Bilateral Throughout] Pulse Rate [ 114 H Anterior Left Upper Lobe] Pulse Rate [ Posterior Throughout] Pulse Rate [ 114 H Right From Monitor] Respiratory 22 16 Rate Respiratory Rate [Anterior Bilateral Throughout] Respiratory 20 Rate [Anterior Left Upper Lobe ] Respiratory Rate [Posterior Throughout] Blood Pressure 120/70 Blood Pressure [Left] O2 Sat by Pulse Oximetry 08/09/18 08/09/18 08/09/18 13:10 13:22 16:38 Temperature 99.0 F Pulse Rate 102 H Pulse Rate [ 109 H 111 H Anterior Bilateral Throughout] Pulse Rate [ Anterior Left Upper Lobe] Pulse Rate [ 109 H 111 H Posterior Throughout] Pulse Rate [ Right From Monitor] Respiratory 16 Rate Respiratory 20 20 Rate [Anterior Bilateral Throughout] Respiratory Rate [Anterior Left Upper Lobe ] Respiratory 20 20 Rate [Posterior Throughout] Blood Pressure 121/74 Blood Pressure [Left] O2 Sat by Pulse 99 Oximetry 08/09/18 08/09/18 16:50 16:58 Temperature Pulse Rate Pulse Rate [ 108 H 110 H Anterior Bilateral Throughout] Pulse Rate [ Anterior Left Upper Lobe] Pulse Rate [ 108 H 110 H Posterior Throughout] Pulse Rate [ Right From Monitor] Respiratory Rate Respiratory 18 18 Rate [Anterior Bilateral Throughout] Respiratory Rate [Anterior Left Upper Lobe ] Respiratory 18 18 Rate [Posterior Throughout] Blood Pressure Blood Pressure [Left] O2 Sat by Pulse Oximetry General appearance: Present: mild distress, well-nourished - EENT Eyes: PERRL, EOM intact ENT: hearing intact, clear oral mucosa Ears: bilateral: normal - Neck Neck: supple, normal ROM - Respiratory Respiratory effort: normal Respiratory: bilateral: CTA - Breasts Breasts: normal - Cardiovascular Heart rate: 76 Rhythm: regular Heart Sounds: Present: S1 & S2. Absent: gallop, rub Extremities: pulses intact, No edema, normal color, Full ROM - Gastrointestinal General gastrointestinal: Present: soft, non-tender, non-distended, normal bowel sounds - Genitourinary Female genitourinary: normal - Integumentary Integumentary: clear, warm, dry - Musculoskeletal Musculoskeletal: 1, strength equal bilaterally - Neurologic Neurologic: moves all extremities - Psychiatric Psychiatric: memory intact, appropriate mood/affect, intact judgment & insight - Allied health notes Allied health notes reviewed: nursing, case management - Labs CBC & Chem 7: 08/10/18 06:37 08/10/18 06:37
[2018-08-09] MEDS: RisperDAL PO SCH (22:38)
[2018-08-10] MEDS: PROVENTIL IH SCH ×6 (03:02→23:59)
[2018-08-10 07:29] LABS: Basophils % (Auto) 0.7 % (0.0-1.8); Eosinophils # (Auto) 0.4 K/mm3 (0.0-0.4); Eosinophils % (Auto) 6.4 % (0.0-4.3); Hematocrit 33.4 % (30.3-42.9); Lymphocytes # (Auto) 1.7 K/mm3 (1.2-5.4); Lymphocytes % (Auto) 25.6 % (13.4-35.0); Mean Corpuscular HGB Conc 33 % (30-34); Mean Corpuscular Hemoglobin 27 pg (28-32); Mean Corpuscular Volume 83 fl (79-97); Monocytes # (Auto) 0.5 K/mm3 (0.0-0.8); Platelet Count 274 K/mm3 (140-440); Red Blood Count 4.05 M/mm3 (3.65-5.03); Red Cell Distribution Width 15.1 % (13.2-15.2)
[2018-08-10 07:46] LABS: BUN/Creatinine Ratio 20; Blood Urea Nitrogen 14 mg/dL (7-17); Hemolysis Index 0
[2018-08-10] MEDS: BROVANA NEBU IH SCH ×2 (08:09→21:05)
[2018-08-10] MEDS: PULMICORT IH SCH ×2 (08:09→21:06)
[2018-08-10] MEDS: HYDROMET PO PRN (08:46)
[2018-08-10] MEDS: CYMBALTA PO SCH (10:37)
[2018-08-10] MEDS: LEXAPRO PO SCH (10:38)
[2018-08-10] MEDS: PEPCID PO SCH ×2 (10:38→21:53)
[2018-08-10] MEDS: SODIUM CHLORIDE FLUSH SYRINGE 10 ML IV SCH ×2 (10:39→21:58)
[2018-08-10] MEDS: ATIVAN IV PRN ×2 (10:50→21:57)
[2018-08-10] MEDS: SINGULAIR PO SCH (18:05)
--- NOTE | 2018-08-10 19:10 | Progress Note ---
Assessment and Plan Assessment and Plan - Patient Problems (1) Respiratory failure with hypoxia Current Visit: Yes Status: Acute Continue Solu-Medrol nebulizer treatments and antibiotics We will decrease the Solu-Medrol (2) Anxiety Current Visit: Yes Status: Acute Plan to address problem: Ativan prn, supportive care. (3) Asthma with status asthmaticus in adult Current Visit: No Status: Acute Qualifiers: Asthma severity: severe Asthma persistence: persistent Qualified Code(s) : J45.52 - Severe persistent asthma with status asthmaticus Plan to address problem: Decrease steroids ,supplemental oxygen, chest x ray, NIPPV as clinically indicated, Magnesium sulfate given by EMS en route to hospital (4) DVT prophylaxis Current Visit: No Status: Acute Plan to address problem: SCD to BLE while in bed. Subjective Date of service: 08/10/18 Principal diagnosis: status asthmaticus and acute respiratory failure Interval history: Symptomatically better Objective - Exam Narrative Exam: In mild distress - Constitutional Vitals: Vital Signs - 12hr 08/10/18 08/10/18 08/10/18 08:12 08:22 10:00 Temperature Pulse Rate Pulse Rate [ 106 H 108 H Anterior Bilateral Throughout] Respiratory 20 Rate Respiratory 20 20 Rate [Anterior Bilateral Throughout] Blood Pressure Blood Pressure [Left] O2 Sat by Pulse Oximetry 08/10/18 08/10/18 08/10/18 11:57 11:58 12:10 Temperature 97.8 F Pulse Rate 115 H Pulse Rate [ 117 H 119 H Anterior Bilateral Throughout] Respiratory 16 Rate Respiratory 20 20 Rate [Anterior Bilateral Throughout] Blood Pressure 114/74 Blood Pressure [Left] O2 Sat by Pulse 100 Oximetry 08/10/18 08/10/18 08/10/18 15:49 16:00 16:11 Temperature 97.6 F Pulse Rate 110 H Pulse Rate [ 115 H 120 H Anterior Bilateral Throughout] Respiratory 18 Rate Respiratory 20 20 Rate [Anterior Bilateral Throughout] Blood Pressure 128/93 Blood Pressure 128/93 [Left] O2 Sat by Pulse 100 Oximetry General appearance: Present: no acute distress, well-nourished - EENT Eyes: PERRL, EOM intact ENT: hearing intact, clear oral mucosa Ears: bilateral: normal - Neck Neck: supple, normal ROM - Respiratory Respiratory effort: normal Respiratory: bilateral: CTA, rhonchi - Breasts Breasts: normal - Cardiovascular Heart rate: 76 Rhythm: regular Heart Sounds: Present: S1 & S2. Absent: gallop, rub Extremities: pulses intact, No edema, normal color, Full ROM - Gastrointestinal General gastrointestinal: Present: soft, non-tender, non-distended, normal bowel sounds - Genitourinary Female genitourinary: normal - Integumentary Integumentary: clear, warm, dry - Musculoskeletal Musculoskeletal: 1, strength equal bilaterally - Neurologic Neurologic: moves all extremities - Psychiatric Psychiatric: memory intact, appropriate mood/affect, intact judgment & insight - Allied health notes Allied health notes reviewed: nursing, case management - Labs CBC & Chem 7: 08/10/18 06:37 08/10/18 06:37 Labs: Abnormal lab results 08/10/18 Range/Units 06:37 MCH 27 L (28-32) pg [place] % (Auto) 8.0 H (0.0-7.3) % Eos % (Auto) 6.4 H (0.0-4.3) %
[2018-08-10] MEDS: RisperDAL PO SCH (21:53)
[2018-08-11] MEDS: PROVENTIL IH SCH ×5 (03:04→20:49)
[2018-08-11] MEDS: ATIVAN IV PRN ×3 (06:46→22:07)
[2018-08-11] MEDS: PULMICORT IH SCH ×2 (08:12→20:49)
[2018-08-11] MEDS: BROVANA NEBU IH SCH ×2 (08:12→20:49)
[2018-08-11] MEDS: PEPCID PO SCH ×2 (09:18→21:59)
[2018-08-11] MEDS: LEXAPRO PO SCH (09:18)
[2018-08-11] MEDS: CYMBALTA PO SCH (09:18)
[2018-08-11] MEDS: SODIUM CHLORIDE FLUSH SYRINGE 10 ML IV SCH ×2 (09:20→22:12)
--- NOTE | 2018-08-11 16:40 | Progress Note ---
Assessment and Plan Assessment and Plan - Patient Problems (1) Respiratory failure with hypoxia Current Visit: Yes Status: Acute Continue Solu-Medrol nebulizer treatments and antibiotics We will decrease the Solu-Medrol (2) Anxiety Current Visit: Yes Status: Acute Plan to address problem: Ativan prn, supportive care. (3) Asthma with status asthmaticus in adult Current Visit: No Status: Acute Qualifiers: Asthma severity: severe Asthma persistence: persistent Qualified Code(s) : J45.52 - Severe persistent asthma with status asthmaticus Plan to address problem: Decrease steroids ,supplemental oxygen, chest x ray, NIPPV as clinically indicated, Magnesium sulfate given by EMS en route to hospital (4) DVT prophylaxis Current Visit: No Status: Acute Plan to address problem: SCD to BLE while in bed. Subjective Date of service: 08/11/18 Principal diagnosis: status asthmaticus and acute respiratory failure Interval history: Symptomatically better Objective - Exam Narrative Exam: Lying comfortably - Constitutional Vitals: Vital Signs - 12hr 08/11/18 08/11/18 08/11/18 06:24 08:12 08:22 Temperature 97.7 F Pulse Rate 89 Pulse Rate [ 110 H 90 Anterior Bilateral Throughout] Respiratory 16 Rate Respiratory 20 20 Rate [Anterior Bilateral Throughout] Blood Pressure 111/73 O2 Sat by Pulse 100 Oximetry 08/11/18 08/11/18 08/11/18 10:00 12:13 12:23 Temperature Pulse Rate Pulse Rate [ 110 H 108 H Anterior Bilateral Throughout] Respiratory 18 Rate Respiratory 20 20 Rate [Anterior Bilateral Throughout] Blood Pressure O2 Sat by Pulse 99 Oximetry General appearance: Present: no acute distress, well-nourished - EENT Eyes: PERRL, EOM intact ENT: hearing intact, clear oral mucosa Ears: bilateral: normal - Neck Neck: supple, normal ROM - Respiratory Respiratory effort: normal Respiratory: bilateral: CTA, rhonchi - Breasts Breasts: normal - Cardiovascular Rhythm: regular Heart Sounds: Present: S1 & S2. Absent: gallop, rub Extremities: no ischemia, pulses intact, No edema, normal color, Full ROM - Gastrointestinal General gastrointestinal: Present: soft, non-tender, non-distended, normal bowel sounds - Genitourinary Female genitourinary: normal - Integumentary Integumentary: clear, warm, dry - Musculoskeletal Musculoskeletal: 1, strength equal bilaterally - Neurologic Neurologic: moves all extremities - Psychiatric Psychiatric: memory intact, appropriate mood/affect, intact judgment & insight - Labs CBC & Chem 7: 08/10/18 06:37 08/10/18 06:37
[2018-08-11] MEDS: SINGULAIR PO SCH (18:53)
[2018-08-11] MEDS: RisperDAL PO SCH (21:59)
[2018-08-12] MEDS: PROVENTIL IH SCH ×5 (00:16→15:55)
[2018-08-12 06:55] VITALS: BP 102/68
[2018-08-12] MEDS: PULMICORT IH SCH (08:47)
[2018-08-12] MEDS: BROVANA NEBU IH SCH (08:47)
[2018-08-12] MEDS: ATIVAN IV PRN (08:52)
[2018-08-12] MEDS: HYDROMET PO PRN (08:52)
[2018-08-12] MEDS: LEXAPRO PO SCH (10:51)
[2018-08-12] MEDS: CYMBALTA PO SCH (10:51)
[2018-08-12] MEDS: PEPCID PO SCH (10:51)
[2018-08-12] MEDS: SODIUM CHLORIDE FLUSH SYRINGE 10 ML IV SCH (10:52)
--- NOTE | 2018-08-12 11:45 | Discharge Summary ---
Providers - Providers Date of Admission: 08/08/18 13:27 Date of discharge: 08/12/18 Attending physician: SWAPNIL TELLO Primary care physician: WORKING SUPERVISOR Hospitalization Condition: Stable Disposition: DC-01 TO HOME OR SELFCARE Core Measure Documentation - Palliative Care Palliative Care/ Comfort Measures: Not Applicable - Core Measures Any of the following diagnoses?: none Exam - Constitutional Vitals: Temp Pulse Resp BP Pulse Ox 97.0 F L 110 H 20 102/68 97 08/12/18 05:22 08/12/18 08:57 08/12/18 08:57 08/12/18 05:22 08/12/18 05:22 General appearance: Present: no acute distress, well-nourished, obese - EENT Eyes: Present: PERRL, EOM intact - Neck Neck: Present: supple, normal ROM - Respiratory Respiratory effort: normal Respiratory: bilateral: diminished, wheezing (scanty), negative: rales, rhonchi - Cardiovascular Rhythm: regular Heart Sounds: Present: S1 & S2 - Extremities Extremities: no ischemia, No edema - Abdominal General gastrointestinal: Present: soft, non-tender - Integumentary Integumentary: Present: clear, warm - Musculoskeletal Musculoskeletal: strength equal bilaterally - Psychiatric Psychiatric: appropriate mood/affect, cooperative - Neurologic Neurologic: moves all extremities Plan Activity: no restrictions Diet: regular Additional Instructions: Advised 2 days work excuse 08/13/2018 and 08/14/2018. If you have chest pain or shortness of breath contact M.D. or go to emergency room Follow up with: PRIMARY CARE, [Primary Care Provider] - 3-5 Days Prescriptions: Doxycycline [Vibramycin CAP] 100 mg PO Q12HR #14 capsule
[2018-08-22] MEDS ORDERED: PROVENTIL IH SCH (20:00)
== END 2018-08-12 16:30 | disposition home or self-care (01) | DRG 189 ==
LOC: ED 10:12 → 3A 13:27
PROVIDERS: ADMIT Internal Medicine; ATTEND Internal Medicine
DX: J96.21 Acute and chronic respiratory failure with hypoxia (principal); J45.52 Severe persistent asthma with status asthmaticus; C56.9 Malignant neoplasm of unspecified ovary; J44.9 Chronic obstructive pulmonary disease, unspecified; F41.9 Anxiety disorder, unspecified; F32.9 Major depressive disorder, single episode, unspecified; Z82.49 Family history of ischemic heart disease and other diseases of the circulatory system; Z88.2 Allergy status to sulfonamides; Z88.8 Allergy status to other drugs, medicaments and biological substances; Z88.1 Allergy status to other antibiotic agents; Z91.040 Latex allergy status; Z79.899 Other long term (current) drug therapy; Z79.2 Long term (current) use of antibiotics; Z79.51 Long term (current) use of inhaled steroids; Z87.442 Personal history of urinary calculi; Z90.49 Acquired absence of other specified parts of digestive tract; Z85.3 Personal history of malignant neoplasm of breast; Z87.891 Personal history of nicotine dependence
CPT/HCPCS: 36415; 71045; 71275; 80048; 80053; 82550; 83880; 84484; 85025; 87116; 93005; 93010; 94640; 96374; J2060; Q9967

== ENCOUNTER 2020-07-26 15:58 | Emergency (ER) | payer SELFPAY ==
[2020-07-26] MEDS ORDERED: SODIUM CHLORIDE 0.9% 1000 ML IV SOLN IV ONE (16:47)
[2020-07-26] MEDS ORDERED: ALBUTEROL 2.5 MG/3 ML NEBU IH ONE (17:03)
[2020-07-26] MEDS ORDERED: dexAMETHasone 20 MG/5 ML VIAL IV ONE (17:03)
[2020-07-26] MEDS ORDERED: IPRATROPIUM 0.02% NEBU 2.5 ML IH ONE (17:03)
[2020-07-26] MEDS ORDERED: ACETAMINOPHEN 325 MG TAB PO ONE (17:05)
--- NOTE | 2020-07-26 17:40 | Emergency Department Report ---
ED Shortness of Breath HPI - General Chief Complaint: Dyspnea/Respdistress Stated Complaint: SOB/COUGH/ASTHMA Time Seen by Provider: 07/26/20 16:50 Source: patient, EMS Mode of arrival: Stretcher Limitations: No Limitations - History of Present Illness Initial Comments: 39-year-old female the past medical history of asthma, COPD, and metastatic breast cancer presents to the hospital complaining of 3 days of fevers, chills, nonproductive cough, shortness of breath, loss of sense of taste and smell. Patient reports a T-max of 104 at home. She took Tylenol prior to arrival. She has been exposed to coronavirus positive people. She has tested negative for COVID in the past but has not had a recent test. Patient has completed chemotherapy and is scheduled to initiate radiation. Radiation therapy was postponed secondary to port infection. Patient completed outpatient IV antibiotics for port infection to weeks ago. Patient's room air saturation upon arrival was noted to be 100%. Patient's cancer doctors are at [facility] in [facility] and she is also treated at [facility] - Related Data Home Medications Medication Instructions Recorded Confirmed Last Taken Duloxetine HCl [DULoxetine] 60 mg PO DAILY 02/13/17 08/08/18 2 Days Ago ~03/11/18 Escitalopram [Lexapro] 20 mg PO DAILY 02/13/17 08/08/18 2 Days Ago ~03/11/18 carBAMazepine [TEGretol] 200 mg PO QHS 02/13/17 08/08/18 2 Days Ago ~03/11/18 risperiDONE [RisperDAL] 1 mg PO QHS 02/13/17 08/08/18 2 Days Ago ~03/11/18 Albuterol Mdi (or & Nicu Only) 2 puff IH QID PRN 08/08/18 08/08/18 Unknown [ProAir HFA Inhaler] Benzonatate 200 mg PO PRN 08/08/18 08/08/18 Unknown Previous Rx's Medication Instructions Recorded Last Taken Type ALBUTEROL NEB's [Proventil 0.083% 2.5 mg IH Q4HRT PRN #30 nebu 12/30/17 2 Days Ago Rx NEBS] ~03/11/18 Fluticasone/Salmeterol [Advair 1 puff IH BID 30 Days blst.w.dev 12/30/17 2 Days Ago Rx Diskus 500-50 mcg] ~03/11/18 Montelukast [Singulair] 10 mg PO QPM #30 tablet 12/30/17 2 Days Ago Rx ~03/11/18 Prednisone [predniSONE 10 mg 10 mg PO .TAPER #1 tab.ds.pk 03/14/18 Unknown Rx (6-Day Pack, 21 Tabs)] DOXYCYCLINE Hyclate [Vibramycin 100 mg PO Q12HR #14 capsule 08/12/18 Unknown Rx CAP] Allergies Allergy/AdvReac Type Severity Reaction Status Date / Time latex Allergy Unknown Verified 02/26/16 19:30 levofloxacin [From Levaquin] Allergy Shortness Verified 02/22/16 11:50 of Breath metoclopramide [From Reglan] Allergy Unknown Verified 07/26/20 16:27 ondansetron Allergy Anaphylaxis Verified 02/26/16 19:30 Sulfa (Sulfonamide Allergy Shortness Verified 02/22/16 11:50 Antibiotics) of Breath ED Review of Systems ROS: Stated complaint: SOB/COUGH/ASTHMA Other details as noted in HPI Comment: All other systems reviewed and negative ED Past Medical Hx - Past Medical History Previous Medical History?: Yes Hx Congestive Heart Failure: No Hx Diabetes: No Hx of Cancer: Yes (Breast, lung, brain, cervix) Hx Kidney Stones: Yes Hx Psychiatric Treatment: Yes ( depression) Hx Asthma: Yes Hx COPD: Yes Additional medical history: COPD; Ovarian and Breast Cancer - Surgical History Past Surgical History?: Yes Hx Cholecystectomy: Yes Hx Breast Surgery: Yes - Social History Smoking Status: Former Smoker Substance Use Type: Marijuana - Medications Home Medications: Home Medications Medication Instructions Recorded Confirmed Last Taken Type Duloxetine HCl [DULoxetine] 60 mg PO DAILY 02/13/17 08/08/18 2 Days Ago History ~03/11/18 Escitalopram [Lexapro] 20 mg PO DAILY 02/13/17 08/08/18 2 Days Ago History ~03/11/18 carBAMazepine [TEGretol] 200 mg PO QHS 02/13/17 08/08/18 2 Days Ago History ~03/11/18 risperiDONE [RisperDAL] 1 mg PO QHS 02/13/17 08/08/18 2 Days Ago History ~03/11/18 ALBUTEROL NEB's [Proventil 0.083% 2.5 mg IH Q4HRT PRN #30 nebu 12/30/17 08/08/18 2 Days Ago Rx NEBS] ~03/11/18 Fluticasone/Salmeterol [Advair 1 puff IH BID 30 Days blst.w.dev 12/30/17 2 Days Ago Rx Diskus 500-50 mcg] ~03/11/18 Montelukast [Singulair] 10 mg PO QPM #30 tablet 12/30/17 08/08/18 2 Days Ago Rx ~03/11/18 Prednisone [predniSONE 10 mg 10 mg PO .TAPER #1 tab.ds.pk 03/14/18 08/08/18 Unknown Rx (6-Day Pack, 21 Tabs)] Albuterol Mdi (or & Nicu Only) 2 puff IH QID PRN 08/08/18 08/08/18 Unknown History [ProAir HFA Inhaler] Benzonatate 200 mg PO PRN 08/08/18 08/08/18 Unknown History DOXYCYCLINE Hyclate [Vibramycin 100 mg PO Q12HR #14 capsule 08/12/18 Unknown Rx CAP] ED Physical Exam - General Limitations: No Limitations - Other Other exam information: General: No acute distress Head: Atraumatic Eyes: normal appearance ENT: Moist mucous membranes Neck: Normal appearance, no midline tenderness Chest: Tachypnea, wheezing, no rales or crackle intermittent dry cough CV: Regular rate and rhythm Abdomen: Soft, normal bowel sounds, nontender, nondistended, no rebound or guarding Back: Normal inspection Extremity: Normal inspection, full range of motion, no leg edema Neuro: Alert O x 3, no facial asymmetry, speech clear, no gross motor sensory deficit Psych: Appropriate behavior Skin: No rash ED Course Vital Signs 07/26/20 07/26/20 07/26/20 16:27 16:35 17:01 Temperature 100 F H Pulse Rate 87 92 H 97 H Pulse Rate [ Bilateral Throughout] Respiratory 20 18 19 Rate Respiratory Rate [Bilateral Throughout] Blood Pressure 158/112 158/112 O2 Sat by Pulse 100 100 97 Oximetry 07/26/20 07/26/20 07/26/20 17:31 17:33 18:01 Temperature Pulse Rate 98 H 99 H Pulse Rate [ 102 H Bilateral Throughout] Respiratory 14 34 H Rate Respiratory 20 Rate [Bilateral Throughout] Blood Pressure 158/101 158/102 O2 Sat by Pulse 97 99 Oximetry 07/26/20 07/26/20 18:12 18:15 Temperature 99.1 F Pulse Rate Pulse Rate [ Bilateral Throughout] Respiratory 34 H Rate Respiratory Rate [Bilateral Throughout] Blood Pressure O2 Sat by Pulse 99 Oximetry ED Medical Decision Making - Lab Data Result diagrams: 07/26/20 17:24 07/26/20 17:24 Lab Results 07/26/20 07/26/20 07/26/20 Range/Units 17:24 17:24 17:24 WBC 5.8 (4.5-11.0) K/mm3 RBC 4.53 (3.65-5.03) M/mm3 Hgb 12.2 (10.1-14.3) gm/dl Hct 36.1 (30.3-42.9) % MCV 80 (79-97) fl MCH 27 L (28-32) pg MCHC 34 (30-34) % RDW 17.0 H (13.2-15.2) % Plt Count 310 (140-440) K/mm3 Lymph % (Auto) 15.5 (13.4-35.0) % [place] % (Auto) 12.3 H (0.0-7.3) % Eos % (Auto) 5.7 H (0.0-4.3) % Baso % (Auto) 0.7 (0.0-1.8) % Lymph # 0.9 L (1.2-5.4) K/mm3 [place] # 0.7 (0.0-0.8) K/mm3 Eos # 0.3 (0.0-0.4) K/mm3 Baso # 0.0 (0.0-0.1) K/mm3 Seg Neutrophils % 65.8 (40.0-70.0) % Seg Neutrophils # 3.8 (1.8-7.7) K/mm3 D-Dimer (0-234) ng/mlDDU Sodium 136 L (137-145) mmol/L Potassium 3.8 (3.6-5.0) mmol/L Chloride 101.0 (98-107) mmol/L Carbon Dioxide 19 L (22-30) mmol/L Anion Gap 20 mmol/L BUN 5 L (7-17) mg/dL Creatinine 0.7 (0.6-1.2) mg/dL Estimated GFR > 60 ml/min BUN/Creatinine Ratio 7 % Glucose 95 (65-100) mg/dL Lactic Acid 0.90 (0.7-2.0) mmol/L Calcium 9.4 (8.4-10.2) mg/dL Ferritin (10.0-200.0) ng/mL Total Bilirubin < 0.20 (0.1-1.2) mg/dL AST 13 (5-40) units/L ALT 10 (7-56) units/L Alkaline Phosphatase 65 (35-129) units/L Lactate Dehydrogenase (91-180) units/L C-Reactive Protein (0.00-1.30) mg/dL Total Protein 7.6 (6.3-8.2) g/dL Albumin 3.8 L (3.9-5) g/dL Albumin/Globulin Ratio 1.0 % HCG, Quant (0-4) mIU/mL 07/26/20 07/26/20 07/26/20 Range/Units 17:24 17:24 17:24 WBC (4.5-11.0) K/mm3 RBC (3.65-5.03) M/mm3 Hgb (10.1-14.3) gm/dl Hct (30.3-42.9) % MCV (79-97) fl MCH (28-32) pg MCHC (30-34) % RDW (13.2-15.2) % Plt Count (140-440) K/mm3 Lymph % (Auto) (13.4-35.0) % [place] % (Auto) (0.0-7.3) % Eos % (Auto) (0.0-4.3) % Baso % (Auto) (0.0-1.8) % Lymph # (1.2-5.4) K/mm3 [place] # (0.0-0.8) K/mm3 Eos # (0.0-0.4) K/mm3 Baso # (0.0-0.1) K/mm3 Seg Neutrophils % (40.0-70.0) % Seg Neutrophils # (1.8-7.7) K/mm3 D-Dimer 520.65 H (0-234) ng/mlDDU Sodium (137-145) mmol/L Potassium (3.6-5.0) mmol/L Chloride (98-107) mmol/L Carbon Dioxide (22-30) mmol/L Anion Gap mmol/L BUN (7-17) mg/dL Creatinine (0.6-1.2) mg/dL Estimated GFR ml/min BUN/Creatinine Ratio % Glucose 96 (65-100) mg/dL Lactic Acid (0.7-2.0) mmol/L Calcium (8.4-10.2) mg/dL Ferritin (10.0-200.0) ng/mL Total Bilirubin (0.1-1.2) mg/dL AST (5-40) units/L ALT (7-56) units/L Alkaline Phosphatase (35-129) units/L Lactate Dehydrogenase 222 H (91-180) units/L C-Reactive Protein 1.60 H (0.00-1.30) mg/dL Total Protein (6.3-8.2) g/dL Albumin (3.9-5) g/dL Albumin/Globulin Ratio % HCG, Quant < 2 (0-4) mIU/mL 07/26/20 Range/Units 17:24 WBC (4.5-11.0) K/mm3 RBC (3.65-5.03) M/mm3 Hgb (10.1-14.3) gm/dl Hct (30.3-42.9) % MCV (79-97) fl MCH (28-32) pg MCHC (30-34) % RDW (13.2-15.2) % Plt Count (140-440) K/mm3 Lymph % (Auto) (13.4-35.0) % [place] % (Auto) (0.0-7.3) % Eos % (Auto) (0.0-4.3) % Baso % (Auto) (0.0-1.8) % Lymph # (1.2-5.4) K/mm3 [place] # (0.0-0.8) K/mm3 Eos # (0.0-0.4) K/mm3 Baso # (0.0-0.1) K/mm3 Seg Neutrophils % (40.0-70.0) % Seg Neutrophils # (1.8-7.7) K/mm3 D-Dimer (0-234) ng/mlDDU Sodium (137-145) mmol/L Potassium (3.6-5.0) mmol/L Chloride (98-107) mmol/L Carbon Dioxide (22-30) mmol/L Anion Gap mmol/L BUN (7-17) mg/dL Creatinine (0.6-1.2) mg/dL Estimated GFR ml/min BUN/Creatinine Ratio % Glucose (65-100) mg/dL Lactic Acid (0.7-2.0) mmol/L Calcium (8.4-10.2) mg/dL Ferritin 43.3 (10.0-200.0) ng/mL Total Bilirubin (0.1-1.2) mg/dL AST (5-40) units/L ALT (7-56) units/L Alkaline Phosphatase (35-129) units/L Lactate Dehydrogenase (91-180) units/L C-Reactive Protein (0.00-1.30) mg/dL Total Protein (6.3-8.2) g/dL Albumin (3.9-5) g/dL Albumin/Globulin Ratio % HCG, Quant (0-4) mIU/mL - EKG Data -: EKG Interpreted by Me EKG shows normal: sinus rhythm, ST-T waves (no stemi) Rate: normal (84) - Medical Decision Making I was informed by nurse that patient was to leave AGAINST MEDICAL ADVICE. Pt was informed that the plan was to likely admit her after ed workup. Patient states she is unhappy with the care here saying that she feels that we do not care. She is upset that she was brought here instead at [facility] where her doctors are. She is upset that I requested that she place her face mask over her nose upon my entry into the room. She was upset that the chemistry technician asked her to put a mask over her nebulizer mask perform x-ray. She feels like staff is being very short and uncaring towards her. I tried to explain to her that we are suspicious that she might have coronavirus and therefore staff interactions with her will likely be shorter than usual and require appropriate PPE and for her to wear a mask upon entry of others into her room. Patient is frustrated and refused x-ray and further treatment and wants to leave AGAINST MEDICAL ADVICE. She will be provided a copy of her labs to take to the next hospital and plans to go directly to [facility]. Critical Care Time: No Critical care attestation.: If time is entered above; I have spent that time in minutes in the direct care of this critically ill patient, excluding procedure time. ED Disposition Clinical Impression: Asthma exacerbation, Febrile illness, Metastatic cancer, Suspected COVID-19 virus infection Disposition: DC-07 LEFT AGAINST MED ADVICE Is pt being admited?: No Does the pt Need Aspirin: No Condition: Stable Instructions: COVID-19, Asthma (ED), Fever in Adults (ED) Additional Instructions: Your work-up was incomplete. Your sign out AGAINST MEDICAL ADVICE. It is highly suspected that you have coronavirus infection. Please go to the hospital of your choice for care and evaluation. Forms: AMA Form Time of Disposition: 18:59
[2020-07-26 17:43] LABS: Basophils % (Auto) 0.7 % (0.0-1.8); Eosinophils # (Auto) 0.3 K/mm3 (0.0-0.4); Eosinophils % (Auto) 5.7 % (0.0-4.3); Hematocrit 36.1 % (30.3-42.9); Hemoglobin 12.2 gm/dl (10.1-14.3); Lymphocytes # (Auto) 0.9 K/mm3 (1.2-5.4); Lymphocytes % (Auto) 15.5 % (13.4-35.0); Mean Corpuscular HGB Conc 34 % (30-34); Mean Corpuscular Volume 80 fl (79-97); Monocytes # (Auto) 0.7 K/mm3 (0.0-0.8); Monocytes % (Auto) 12.3 % (0.0-7.3); Platelet Count 310 K/mm3 (140-440); Red Blood Count 4.53 M/mm3 (3.65-5.03)
[2020-07-26 17:59] LABS: Alanine Aminotransferase 10 units/L (7-56); Albumin 3.8 g/dL (3.9-5); Blood Urea Nitrogen 5 mg/dL (7-17); Calcium 9.4 mg/dL (8.4-10.2); Hemolysis Index 11
[2020-07-26 18:00] LABS: BUN/Creatinine Ratio 7; C-Reactive Protein 1.6 mg/dL (0.00-1.30); HCG,Quantitative < 2 mIU/mL (0-4)
[2020-07-26 19:24] VITALS: BP 155/100
== END 2020-07-26 19:15 | disposition left against medical advice (07) ==
LOC: ED 15:58
DX: J45.909 Unspecified asthma, uncomplicated (principal); F12.10 Cannabis abuse, uncomplicated; Z20.828 Contact with and (suspected) exposure to other viral communicable diseases; Z90.49 Acquired absence of other specified parts of digestive tract; Z87.891 Personal history of nicotine dependence; Z91.040 Latex allergy status; Z88.1 Allergy status to other antibiotic agents; Z88.8 Allergy status to other drugs, medicaments and biological substances
CPT/HCPCS: 36415; 80053; 82140; 82728; 82947; 83615; 84145; 84702; 85025; 85379; 86140; 87040; 93005; 94644; 96374; 99284; J1100; J7030

== ENCOUNTER 2021-09-14 17:36 | Emergency (ER) | payer SELFPAY ==
--- NOTE | 2021-09-14 19:14 | Emergency Department Report ---
ED Lower Extremity HPI - General Chief Complaint: Extremity Injury, Lower Stated Complaint: RT FOOT PAIN Time Seen by Provider: 09/14/21 18:35 Source: patient Mode of arrival: Wheelchair Limitations: No Limitations - History of Present Illness MD Complaint: foot injury -: Gradual, Sudden Injury: Foot: Right Type of Injury: inversion Severity: mild Improves With: nothing Worsens With: weight bearing Context: fall (At the tip and fall down the steps while in the past last lost her footing and inverting the foot causing pain to the lateral last) Associated Symptoms: swelling, able to partially bear weight - Related Data Home Medications Medication Instructions Recorded Confirmed Last Taken Duloxetine HCl [DULoxetine] 60 mg PO DAILY 02/13/17 08/08/18 2 Days Ago ~03/11/18 Escitalopram [Lexapro] 20 mg PO DAILY 02/13/17 08/08/18 2 Days Ago ~03/11/18 carBAMazepine [TEGretol] 200 mg PO QHS 02/13/17 08/08/18 2 Days Ago ~03/11/18 risperiDONE [RisperDAL] 1 mg PO QHS 02/13/17 08/08/18 2 Days Ago ~03/11/18 Albuterol Mdi (or & Nicu Only) 2 puff IH QID PRN 08/08/18 08/08/18 Unknown [ProAir HFA Inhaler] Benzonatate 200 mg PO PRN 08/08/18 08/08/18 Unknown Previous Rx's Medication Instructions Recorded Last Taken Type ALBUTEROL NEB's [Proventil 0.083% 2.5 mg IH Q4HRT PRN #30 nebu 12/30/17 2 Days Ago Rx NEBS] ~03/11/18 Fluticasone/Salmeterol [Advair 1 puff IH BID 30 Days blst.w.dev 12/30/17 2 Days Ago Rx Diskus 500-50 mcg] ~03/11/18 Montelukast [Singulair] 10 mg PO QPM #30 tablet 12/30/17 2 Days Ago Rx ~03/11/18 Prednisone [predniSONE 10 mg 10 mg PO .TAPER #1 tab.ds.pk 03/14/18 Unknown Rx (6-Day Pack, 21 Tabs)] DOXYCYCLINE Hyclate [Vibramycin 100 mg PO Q12HR #14 capsule 08/12/18 Unknown Rx CAP] Acetaminophen/Codeine [Tylenol 1 tab PO Q6H PRN #14 tab 09/14/21 Unknown Rx /Codeine # 3 tab] Allergies Allergy/AdvReac Type Severity Reaction Status Date / Time latex Allergy Unknown Verified 09/14/21 18:18 levofloxacin [From Levaquin] Allergy Shortness Verified 09/14/21 18:18 of Breath metoclopramide [From Reglan] Allergy Unknown Verified 09/14/21 18:18 ondansetron Allergy Anaphylaxis Verified 09/14/21 18:18 Sulfa (Sulfonamide Allergy Shortness Verified 09/14/21 18:18 Antibiotics) of Breath ED Review of Systems ROS: Stated complaint: RT FOOT PAIN Other details as noted in HPI Comment: All other systems reviewed and negative ED Past Medical Hx - Past Medical History Hx Congestive Heart Failure: No Hx Diabetes: No Hx Kidney Stones: Yes Hx Psychiatric Treatment: Yes ( depression) Hx Asthma: Yes Hx COPD: Yes Additional medical history: COPD; Ovarian and Breast Cancer - Surgical History Hx Cholecystectomy: Yes Hx Breast Surgery: Yes - Social History Smoking Status: Former Smoker Substance Use Type: Marijuana - Medications Home Medications: Home Medications Medication Instructions Recorded Confirmed Last Taken Type Duloxetine HCl [DULoxetine] 60 mg PO DAILY 02/13/17 08/08/18 2 Days Ago History ~03/11/18 Escitalopram [Lexapro] 20 mg PO DAILY 02/13/17 08/08/18 2 Days Ago History ~03/11/18 carBAMazepine [TEGretol] 200 mg PO QHS 02/13/17 08/08/18 2 Days Ago History ~03/11/18 risperiDONE [RisperDAL] 1 mg PO QHS 02/13/17 08/08/18 2 Days Ago History ~03/11/18 ALBUTEROL NEB's [Proventil 0.083% 2.5 mg IH Q4HRT PRN #30 nebu 12/30/17 08/08/18 2 Days Ago Rx NEBS] ~03/11/18 Fluticasone/Salmeterol [Advair 1 puff IH BID 30 Days blst.w.dev 12/30/17 08/08/18 2 Days Ago Rx Diskus 500-50 mcg] ~03/11/18 Montelukast [Singulair] 10 mg PO QPM #30 tablet 12/30/17 08/08/18 2 Days Ago Rx ~03/11/18 Prednisone [predniSONE 10 mg 10 mg PO .TAPER #1 tab.ds.pk 03/14/18 08/08/18 Unknown Rx (6-Day Pack, 21 Tabs)] Albuterol Mdi (or & Nicu Only) 2 puff IH QID PRN 08/08/18 08/08/18 Unknown History [ProAir HFA Inhaler] Benzonatate 200 mg PO PRN 08/08/18 08/08/18 Unknown History DOXYCYCLINE Hyclate [Vibramycin 100 mg PO Q12HR #14 capsule 08/12/18 Unknown Rx CAP] Acetaminophen/Codeine [Tylenol 1 tab PO Q6H PRN #14 tab 09/14/21 Unknown Rx /Codeine # 3 tab] ED Physical Exam - General Limitations: No Limitations General appearance: alert, in no apparent distress - Head Head exam: Present: atraumatic, normocephalic - Eye Eye exam: Present: normal appearance, PERRL, EOMI Pupils: Present: normal accommodation - ENT ENT exam: Present: mucous membranes moist - Neck Neck exam: Present: normal inspection - Respiratory Respiratory exam: Present: normal lung sounds bilaterally. Absent: respiratory distress - Cardiovascular Cardiovascular Exam: Present: regular rate, normal rhythm. Absent: systolic murmur, diastolic murmur, rubs, gallop - GI/Abdominal GI/Abdominal exam: Present: soft, normal bowel sounds - Extremities Exam Extremities exam: Present: tenderness (Tenderness to the lateral aspect of the foot around the area of the base of the fifth metatarsal), normal capillary refill, other - Back Exam Back exam: Present: normal inspection. Absent: CVA tenderness (R), CVA tenderness (L) - Neurological Exam Neurological exam: Present: alert, oriented X3, CN II-XII intact - Psychiatric Psychiatric exam: Present: normal affect, normal mood. Absent: agitated, flat affect, manic, homicidal ideation - Skin Skin exam: Present: warm, dry, intact, normal color. Absent: rash, cyanosis, diaphoretic, urticaria, petechiae, pallor, abrasion ED Lower Extremity MDM - Radiology Data Radiology results: report reviewed [facility] [address] [place] [address] XRay Report Signed Patient: MARGARET BERG R#: [id number] : 1980 Acct:[id number] Age/Sex: 40 / F ADM Date: 09/14/21 Loc: ED Attending Dr: Ordering Physician: SISI RYAN Date of Service: 09/14/21 Procedure(s): XR foot 3+V RT Accession Number(s): [id number] cc: SISI RYAN Fluoro Time In Minutes: RIGHT FOOT 3 VIEWS INDICATION: foot pain and swelling (lateral). COMPARISON: None. IMPRESSION: There is moderate distal soft tissue swelling. No acute osseous abnormality or significant joint pathology. Signer Name: Zi Shields Jr, MD Signed: 09/14/2021 7:47 PM Workstation Name: [id number] Transcribed By: TTR Dictated By: ZI SHIELDS JR, MD Electronically Authenticated By: ZI SHIELDS JR, MD Signed Date/Time: 09/14/211946 DD/ 45 TD/TT: - Medical Decision Making This is a 40-year-old female patient presents with foot swelling and pain and x- ray shows no fracture. Area swollen and tender suggestive of a foot contusion. Will will move forward with Reginaldo wrap for comfort and will educate her on rice therapy. Critical care attestation.: If time is entered above; I have spent that time in minutes in the direct care of this critically ill patient, excluding procedure time. ED Disposition Clinical Impression: Contusion of foot, right Disposition: 01 HOME / SELF CARE / HOMELESS Is pt being admited?: No Does the pt Need Aspirin: No Condition: Stable Instructions: Contusion, [id number], How to Use Cold Therapy, [id number], Foot Contusion, [id number] Prescriptions: Acetaminophen/Codeine [Tylenol /Codeine # 3 tab] 1 tab PO Q6H PRN #14 tab PRN Reason: Pain , Severe (7-10) Referrals: [facility] [Provider Group] - 3-5 Days
--- NOTE | 2021-09-14 19:51 | XRay Report ---
RIGHT FOOT 3 VIEWS INDICATION: foot pain and swelling (lateral). COMPARISON: None. IMPRESSION: There is moderate distal soft tissue swelling. No acute osseous abnormality or signific ant joint pathology. Signer Name: Zi Lewis Jr, MD Signed: 09/14/2021 7:47 PM Workstation Name: [id number]
== END 2021-09-14 23:41 | disposition home or self-care (01) ==
LOC: ED 17:36
DX: S90.31XA Contusion of right foot, initial encounter (principal); W10.9XXA Fall (on) (from) unspecified stairs and steps, initial encounter; Y93.89 Activity, other specified; Y92.89 Other specified places as the place of occurrence of the external cause; Y99.8 Other external cause status; J45.909 Unspecified asthma, uncomplicated; J44.9 Chronic obstructive pulmonary disease, unspecified; Z87.891 Personal history of nicotine dependence; F12.90 Cannabis use, unspecified, uncomplicated; Z88.1 Allergy status to other antibiotic agents; Z88.8 Allergy status to other drugs, medicaments and biological substances
CPT/HCPCS: 99283